=== PATIENT | male | born 1965 | race Caucasian/White ===

== ENCOUNTER 2018-05-01 12:11 | Emergency (ER) | payer MEDICAID ==
[~2018-05-01] VITALS: Ht 170.2 cm; Wt 63.6 kg
[2018-05-01 12:44] VITALS: BP 180/101; Ht 170.2 cm; Wt 63.6 kg
== END 2018-05-01 16:08 | disposition left against medical advice (07) ==
LOC: D.ER 12:11
DX: L03.012 Cellulitis of left finger (principal)

== ENCOUNTER 2018-05-18 09:58 | Emergency (ER) | payer MEDICAID ==
[~2018-05-18] VITALS: Ht 170.2 cm; Wt 54.5 kg
[2018-05-18 10:02] VITALS: Ht 170.2 cm; Wt 54.5 kg
[2018-05-18 10:31] LABS: BASOPHILS 0.4 % (0-2); EOSINOPHILS 5.3 % (0-7); HEMATOCRIT 41.9 % (42.0-54.0); HEMOGLOBIN 14.7 g/dL (13.5-17.5); IMMATURE GRANULOCYTES 0.2 % (0-5); LYMPHOCYTES 29.8 % (15-50); MCH 34.9 pg (26.0-34.0); MCHC 35.1 g/dL (31.0-37.0); MCV 99.5 fL (80.0-100.0); MEAN PLATELET VOLUME 9.4 fL (7.4-10.4); MONOCYTES 13.4 % (2-11); NEUTROPHILS 50.9 % (40-80); PLATELET COUNT 252 10x3/uL (130-400); RBC 4.21 10x6/uL (4.20-6.10); RDW 14.4 % (11.5-14.5); WBC 5.4 10x3/uL (4.8-10.8)
[2018-05-18 10:46] LABS: ALBUMIN 3.3 g/dL (3.4-5.0); ALKALINE PHOSPHATASE 43 U/L (46-116); ALT (SGPT) 10 U/L (10-68); CALC OSMOLALITY 278 mosm/kg (275-300); CALCIUM 8.8 mg/dL (8.5-10.1); CARBON DIOXIDE 26.5 mmol/L (21.0-32.0); CHLORIDE - SERUM 103 mmol/L (98-107); CREATININE - SERUM 0.8 mg/dL (0.6-1.3); GLUCOSE 111 mg/dL (74-106); POTASSIUM - SERUM 3.1 mmol/L (3.5-5.1); PROTEIN - SERUM 6.8 g/dL (6.4-8.2); SODIUM 140 mmol/L (136-145); UREA NITROGEN 10 mg/dL (7-18); eGFR NON AFRICAN AMERICAN > 90 mL/min (90-120)
[2018-05-18 11:14] LABS: INR 0.93 (0.85-1.17)
[2018-05-18] MEDS ORDERED: CLEOCIN HCL300 MG PO (15:09)
[2018-05-18] MEDS ORDERED: OMNICEF300 MG PO (15:09)
[2018-05-18 17:43] VITALS: BP 165/92
[2018-05-21 09:32] VITALS: Ht 170.2 cm; Wt 54.5 kg
== END 2018-05-18 17:45 | disposition home or self-care (01) ==
LOC: D.ER 09:58
PROVIDERS: Family Medicine
DX: L03.012 Cellulitis of left finger (principal)

== ENCOUNTER 2018-05-19 09:01 | Emergency (ER) | payer MEDICAID ==
[2018-05-18 10:02] VITALS: Ht 170.2 cm
[~2018-05-19 09:01] MED LIST: CLEOCIN HCL300 MG PO; OMNICEF300 MG PO
[2018-05-19 09:07] VITALS: BP 147/99
[2018-05-21 09:32] VITALS: Ht 170.2 cm
== END 2018-05-19 09:24 | disposition home or self-care (01) ==
LOC: D.ER 09:01
DX: L03.012 Cellulitis of left finger (principal)

== ENCOUNTER 2018-05-21 07:58 | Emergency (ER) | payer MEDICAID ==
[~2018-05-21] VITALS: Ht 172.7 cm; Wt 54.4 kg
[2018-05-21 08:01] VITALS: BP 113/83; Ht 172.7 cm; Wt 54.4 kg
[2018-05-21 09:32] VITALS: Ht 172.7 cm; Wt 54.4 kg
== END 2018-05-21 08:39 | disposition home or self-care (01) ==
LOC: D.ER 07:58
DX: M79.645 Pain in left finger(s) (principal)

== ENCOUNTER 2018-05-21 09:10 | Day surgery (SDC) | payer SELFPAY ==
[~2018-05-21] VITALS: Ht 172.7 cm; Wt 54.4 kg
[2018-05-21 09:32] VITALS: BP 173/96; Ht 172.7 cm; Wt 54.4 kg
--- NOTE | 2018-05-21 12:20 | NUR ---
REC'D FROM [facility]. DRESSING CDI TO 3RD FINGER LEFT HAND. NO FAMIL/FRIEND AT BEDSIDE. DOES NOT LIKE SOUP ICE CREAM, PUDDING AND SODA BROUGHT TO PT. RELATES HAS TO CALL FOR HIS RIDE. CELL PHONE GOTTEN FROM [employer] AND GIVEN TO PT.
--- NOTE | 2018-05-21 12:50 | NUR ---
TOLERATED DIET. HAS CALLED HIS FRIEND FOR A RIDE. DENIES PAIN. DRESSING CDI TO LEFT HAND.
--- NOTE | 2018-05-21 13:15 | NUR ---
UP TO BATHROOM AND VOIDED WITHOUT DIFFICULTY. WANTED MORE ICE CREAM AND PUDDING. DENIES PAIN.
--- NOTE | 2018-05-21 13:30 | NUR ---
IV DC'D WITH CATHETER INTACT. PATIENT'S RIDE IS HERE.
--- NOTE | 2018-05-21 13:35 | NUR ---
WRITTEN AND VERBAL DC INST GIVEN TO PT. VERBALIZED UNDERSTANDING.
--- NOTE | 2018-05-21 13:40 | NUR ---
DC'D HOME WITH FAMILY VIA PRIVATE VEHICLE. TAKEN TO VEHICLE VIA WC. STABLE AT TIME OF DC.
== END 2018-05-21 13:40 | disposition home or self-care (01) ==
LOC: D.OPS 09:10 → D.PAN 10:00 → D.OPS 10:00
DX: I96 Gangrene, not elsewhere classified (principal)